=== PATIENT | male | born 1990 | race Caucasian/White ===

== ENCOUNTER 2023-01-23 12:22 | Emergency (ER) | payer BC ==
[~2023-01-23] VITALS: Ht 177.8 cm; Wt 77.3 kg
[2023-01-23 13:01] VITALS: BP 123/67
[2023-01-23] MEDS ORDERED: ketorolac tromethamine 15mg/ml inj. IM ONE (13:55)
[2023-01-23] MEDS ORDERED: CYCL-1 PO (14:27)
== END 2023-01-23 14:59 | disposition home or self-care (01) ==
LOC: ER 12:22
DX: S39.012A Strain of muscle, fascia and tendon of lower back, initial encounter (principal); Z79.899 Other long term (current) drug therapy; X50.1XXA Overexertion from prolonged static or awkward postures, initial encounter; Y93.89 Activity, other specified; Y92.89 Other specified places as the place of occurrence of the external cause; Y99.8 Other external cause status
CPT/HCPCS: 72110; 96372; 99283; J1885